=== PATIENT | female | born 1985 ===

== ENCOUNTER → 2020-07-30 06:16 | Outpatient (CLI) | payer OTHER | END | disposition home or self-care (01) | LOC: LAB 06:16 | PROVIDERS: ATTEND Internal Medicine Hematology & Oncology | DX: D68.9 Coagulation defect, unspecified (principal); D69.6 Thrombocytopenia, unspecified ==

== ENCOUNTER 2022-07-14 08:21 | Outpatient (CLI) | payer OTHER | END 2022-07-14 08:32 | disposition home or self-care (01) | LOC: RX STUDY 08:21 | PROVIDERS: ATTEND Obstetrics & Gynecology Reproductive Endocrinology | DX: N70.11 Chronic salpingitis (principal) ==